=== PATIENT | male | born 1985 | race Caucasian/White ===

== ENCOUNTER 2019-09-14 12:29 | Inpatient (IN) | payer MEDICAID ==
[~2019-09-14] VITALS: Ht 185.4 cm; Wt 76.6 kg
[2019-09-14 13:43] LABS: BASOPHILS # (AUTO) 0.1 X10'3 (0-0.2); BASOPHILS % (AUTO) 0.3 % (0-1); EOSINOPHILS # (AUTO) 0.1 X10'3 (0-0.9); EOSINOPHILS % (AUTO) 0.4 % (0-6); HEMATOCRIT 39.7 % (42.0-52.0); HEMOGLOBIN 13.2 g/dl (14.0-17.9); MEAN CORPUSCULAR HEMOGLOBIN 28.5 PG (27.0-31.0); MEAN CORPUSCULAR HGB CONC 33.4 g/dL (33.0-36.5); MEAN CORPUSCULAR VOLUME 85.5 FL (78-98); MEAN PLATELET VOLUME 7.2 FL (7.4-10.4); MONOCYTES # (AUTO) 1.6 X10'3 (0-0.9); MONOCYTES % (AUTO) 10.6 % (2-12); NEUTROPHILS # (AUTO) 11.9 X10'3 (1.8-7.7); NEUTROPHILS % (AUTO) 81.7 % (42-75); PLATELET COUNT 421 X10'3 (140-440); RED BLOOD COUNT 4.64 X10'6 (4.70-6.10); RED CELL DISTRIBUTION WIDTH 12.4 % (11.5-14.5); WHITE BLOOD COUNT 14.6 X10'3 (4.5-11.0)
[2019-09-14] MEDS ORDERED: piperacillin/tazo 3.375gm/50ml 50 ML IV ONE (13:55)
[2019-09-14 13:56] LABS: ALANINE AMINOTRANSFERASE 23 U/L (12-78); ALBUMIN 2.6 G/DL (3.4-5.0); ALBUMIN/GLOBULIN RATIO 0.6 (1.1-1.5); ALKALINE PHOSPHATASE 118 IU/L (46-116); ANION GAP 3 (8-16); ASPARTATE AMINO TRANSFERASE 16 U/L (10-37); BILIRUBIN,TOTAL 0.6 MG/DL (0.1-1.0); BLOOD UREA NITROGEN 8 MG/DL (7-18); BUN/CREATININE RATIO 7.1 (5.4-32.0); CALCIUM 9.1 MG/DL (8.5-10.1); CHLORIDE 101 MMOL/L (99-107); CREATININE 1.13 MG/DL (0.60-1.10); GLUCOSE 57 MG/DL (70-104); LIPASE 92 U/L (73-393); SODIUM 137 MMOL/L (135-145); TOTAL CARBON DIOXIDE 32.9 MMOL/L (24-32); TOTAL PROTEIN 7.2 G/DL (6.4-8.2); eGFR 74 ML/MIN
[2019-09-14] MEDS ORDERED: normal saline 1000ML IV soln IVB ONE (14:00)
[2019-09-14] MEDS ORDERED: ketorolac tromethamine 15mg/ml inj. IV ONE (14:00)
[2019-09-14] MEDS ORDERED: morphine 4 MG/ML inj SYRINge IV ONE (14:30)
[2019-09-14] MEDS ORDERED: HYDROcodone/acetaminophen 5mg/325mg tablet PO PRN (15:40)
[2019-09-14] MEDS ORDERED: ondansetron/PF 4mg/2ml inj IV PRN (15:40)
[2019-09-14] MEDS ORDERED: acetaminophen 325mg tablet PO PRN ×2 (15:40)
[2019-09-14] MEDS ORDERED: mag hydrox/Alum hydrox/simeth 30ml oral suspension PO PRN (15:40)
[2019-09-14] MEDS ORDERED: potassium CL 10mEq/100ml bag 100 ML IV PRN ×2 (15:40)
[2019-09-14] MEDS ORDERED: potassium Cl 20 mEq SR tablet PO PRN ×2 (15:40)
[2019-09-14] MEDS: normal saline 1000ml 1,000 ML IV SCH ×2 (15:56→20:32)
[2019-09-14] MEDS ORDERED: piperacillin/tazo 3.375gm/50ml 50 ML IV SCH (16:00)
[2019-09-14] MEDS ORDERED: NO HOME MEDS (16:03)
--- NOTE | 2019-09-14 17:50 | NUR ---
Paged Dr. Sharpe: PAGER ID: [phone] MESSAGE: Surgical Flsherwin Harrington RN ext [phone]. RE: Fabien Martin. Patient has multiple lesions scattered on his chest and arms. We are not sure if it is scabies or not. I took picture. Will u be able to come and look at it?
--- NOTE | 2019-09-14 17:50 | NUR ---
Patient just got in the room from ER. Patient alert, oriented x 4. Patient oriented to his room. Patient noted to have multiple lesions scattered on his chest and arms. Took picture of the lesions with patient permission. Patient denies insect bite, patient states "I got it when I sweat!" Charge nurse Roxanne small, she advised me to have Dr. Sharpe looked at it.
--- NOTE | 2019-09-14 17:57 | NUR ---
Dr. Sharpe came to look at the picture taken and to assess the patient skin. Per Dr. Sharpe, the skin lesion does not seem to be scabies.
[2019-09-14 17:58] VITALS: BP 116/63
--- NOTE | 2019-09-14 18:34 | NUR ---
Problems reprioritized. Patient report given, questions answered & plan of care reviewed with Linda PAK.
--- NOTE | 2019-09-14 19:49 | NUR ---
Patient in room [facility]. I have received report from MELLISA Harrington and had the opportunity to ask questions and assume patient care. Addendum: 09/14/19 at 1949 by Linda Peralta RN Amended: Links added.
[2019-09-14 19:57] VITALS: BP 133/64
[2019-09-14] MEDS: K and/or MAG REPLACEMENT MC SCH (20:00)
[2019-09-14] MEDS: docusate sod 100mg capsule PO SCH (20:30)
[2019-09-14] MEDS: heparin, porcine 5000 units/ml vial SQ SCH (20:30)
[2019-09-14] MEDS ORDERED: temazepam 15mg capsule PO PRN (21:00)
[2019-09-14] MEDS: HYDROcodone/acetaminophen 10/325mg tab PO PRN (22:51)
[2019-09-14 23:41] VITALS: BP 118/60
[2019-09-15] MEDS: piperacillin/tazo 3.375gm/50ml 50 ML IV SCH ×3 (00:05→15:49)
[2019-09-15] MEDS: normal saline 1000ml 1,000 ML IV SCH ×3 (03:06→21:12)
[2019-09-15 05:11] LABS: BASOPHILS % (AUTO) 0.4 % (0-1); EOSINOPHILS # (AUTO) 0.1 X10'3 (0-0.9); EOSINOPHILS % (AUTO) 0.7 % (0-6); HEMATOCRIT 37.4 % (42.0-52.0); HEMOGLOBIN 12.3 g/dl (14.0-17.9); LYMPHOCYTES # (AUTO) 1.4 X10'3 (1.1-4.8); LYMPHOCYTES % (AUTO) 12.3 % (21-51); MEAN CORPUSCULAR HEMOGLOBIN 28.3 PG (27.0-31.0); MEAN CORPUSCULAR HGB CONC 32.8 g/dL (33.0-36.5); MEAN CORPUSCULAR VOLUME 86.2 FL (78-98); MEAN PLATELET VOLUME 7.7 FL (7.4-10.4); MONOCYTES # (AUTO) 1.3 X10'3 (0-0.9); MONOCYTES % (AUTO) 11.5 % (2-12); NEUTROPHILS # (AUTO) 8.8 X10'3 (1.8-7.7); NEUTROPHILS % (AUTO) 75.1 % (42-75); PLATELET COUNT 388 X10'3 (140-440); RED BLOOD COUNT 4.33 X10'6 (4.70-6.10); RED CELL DISTRIBUTION WIDTH 12.7 % (11.5-14.5); WHITE BLOOD COUNT 11.7 X10'3 (4.5-11.0)
[2019-09-15 05:21] LABS: ALANINE AMINOTRANSFERASE 16 U/L (12-78); ALBUMIN 2.1 G/DL (3.4-5.0); ALBUMIN/GLOBULIN RATIO 0.5 (1.1-1.5); ALKALINE PHOSPHATASE 103 IU/L (46-116); ANION GAP 9 (8-16); ASPARTATE AMINO TRANSFERASE 15 U/L (10-37); BILIRUBIN,TOTAL 0.8 MG/DL (0.1-1.0); BLOOD UREA NITROGEN 8 MG/DL (7-18); BUN/CREATININE RATIO 8.1 (5.4-32.0); CHLORIDE 102 MMOL/L (99-107); CREATININE 0.99 MG/DL (0.60-1.10); GLUCOSE 70 MG/DL (70-104); POTASSIUM 3.9 MMOL/L (3.5-5.1); SODIUM 137 MMOL/L (135-145); TOTAL CARBON DIOXIDE 26.5 MMOL/L (24-32); TOTAL PROTEIN 6.2 G/DL (6.4-8.2); eGFR 87 ML/MIN
--- NOTE | 2019-09-15 06:17 | NUR ---
Problems reprioritized. Patient report given, questions answered & plan of care reviewed with MELLISA Rosa. Addendum: 09/15/19 at 0617 by Linda Peralta RN Amended: Links added.
[2019-09-15] MEDS: pantoprazole 40mg Tablet.DR PO SCH (07:21)
[2019-09-15] MEDS: heparin, porcine 5000 units/ml vial SQ SCH ×2 (07:22→19:49)
[2019-09-15] MEDS: docusate sod 100mg capsule PO SCH ×2 (07:22→19:49)
[2019-09-15] MEDS: K and/or MAG REPLACEMENT MC SCH ×2 (07:23→19:50)
[2019-09-15] MEDS: nicotine 14mg patch - 24hr TD SCH (07:23)
[2019-09-15 07:30] VITALS: BP 126/64
[2019-09-15] MEDS: HYDROcodone/acetaminophen 10/325mg tab PO PRN ×3 (07:30→18:08)
[2019-09-15] MEDS: neomy sulf/bacitrac zn/polymixin b oint 14.2 gm tube TP SCH ×2 (10:30→19:50)
[2019-09-15 11:00] VITALS: BP 120/62
--- NOTE | 2019-09-15 12:53 | NUR ---
SPOKE TO THE PT'S MOTHER SHANDRA. SHE STATES SHE WOULD LIKE TELEPHONE UPDATES CONCERNING PT. POC NEEDED.
--- NOTE | 2019-09-15 13:22 | NUR ---
PAGER ID: [phone] MESSAGE: DID YOU WANT ME TO ORDER A CT SCAN FOR Ciscob Fabien GASTON? PT. IMPATIENT AT THIS TIME. IV CONTRAST? ZAINAB [id number]
--- NOTE | 2019-09-15 15:11 | NUR ---
CALLED MOTHER SHANDRA TO UPDATE ON POC- NO ANSWER. LEFT VOICEMAIL WITH CONTACT NUMBER.
--- NOTE | 2019-09-15 15:15 | NUR ---
24 HOUR TELE ORDER . REMOVED PER PROTOCOL.
--- NOTE | 2019-09-15 18:17 | NUR ---
REPORT GIVEN TO LEATHA PAK.
[2019-09-15 18:30] VITALS: BP 108/69
[2019-09-15] MEDS: lactobacillus rhamnosus 10,000 MMU CELLS/CAPSULE PO SCH (19:49)
[2019-09-15 19:58] VITALS: BP 114/70
[2019-09-15] MEDS: diatr meglu/diatrizoate 30ml oral sol.-(3 dose) bottle PO SCH (21:18)
[2019-09-16] VITALS: BP 115/70
[2019-09-16] MEDS: piperacillin/tazo 3.375gm/50ml 50 ML IV SCH ×3 (00:16→16:35)
[2019-09-16] MEDS: HYDROcodone/acetaminophen 10/325mg tab PO PRN (03:13)
[2019-09-16 05:45] LABS: BASOPHILS # (AUTO) 0.1 X10'3 (0-0.2); BASOPHILS % (AUTO) 0.8 % (0-1); EOSINOPHILS # (AUTO) 0.2 X10'3 (0-0.9); EOSINOPHILS % (AUTO) 1.9 % (0-6); HEMATOCRIT 35.5 % (42.0-52.0); HEMOGLOBIN 11.9 g/dl (14.0-17.9); LYMPHOCYTES # (AUTO) 1.1 X10'3 (1.1-4.8); LYMPHOCYTES % (AUTO) 11.6 % (21-51); MEAN CORPUSCULAR HEMOGLOBIN 28.8 PG (27.0-31.0); MEAN CORPUSCULAR HGB CONC 33.5 g/dL (33.0-36.5); MEAN CORPUSCULAR VOLUME 85.9 FL (78-98); MEAN PLATELET VOLUME 7.6 FL (7.4-10.4); MONOCYTES % (AUTO) 10.8 % (2-12); NEUTROPHILS # (AUTO) 6.9 X10'3 (1.8-7.7); NEUTROPHILS % (AUTO) 74.9 % (42-75); PLATELET COUNT 401 X10'3 (140-440); RED BLOOD COUNT 4.14 X10'6 (4.70-6.10); RED CELL DISTRIBUTION WIDTH 12.4 % (11.5-14.5); WHITE BLOOD COUNT 9.2 X10'3 (4.5-11.0)
[2019-09-16 05:52] LABS: ALANINE AMINOTRANSFERASE 15 U/L (12-78); ALBUMIN 2.1 G/DL (3.4-5.0); ALBUMIN/GLOBULIN RATIO 0.5 (1.1-1.5); ALKALINE PHOSPHATASE 151 IU/L (46-116); ANION GAP 9 (8-16); ASPARTATE AMINO TRANSFERASE 17 U/L (10-37); BILIRUBIN,TOTAL 0.5 MG/DL (0.1-1.0); BLOOD UREA NITROGEN 4 MG/DL (7-18); BUN/CREATININE RATIO 4.6 (5.4-32.0); CALCIUM 8.6 MG/DL (8.5-10.1); CHLORIDE 102 MMOL/L (99-107); CREATININE 0.87 MG/DL (0.60-1.10); GLUCOSE 85 MG/DL (70-104); POTASSIUM 3.7 MMOL/L (3.5-5.1); SODIUM 138 MMOL/L (135-145); TOTAL CARBON DIOXIDE 27.5 MMOL/L (24-32); TOTAL PROTEIN 6.4 G/DL (6.4-8.2); eGFR > 90 ML/MIN
--- NOTE | 2019-09-16 06:25 | NUR ---
Problems reprioritized. Patient report given, questions answered & plan of care reviewed with BERNIE. Addendum: 09/16/19 at 0626 by Bairon Curry RN Amended: Links added.
--- NOTE | 2019-09-16 06:43 | NUR ---
Patient in room [facility]. I have received report from MELLISA Child and had the opportunity to ask questions and assume patient care.
[2019-09-16] MEDS: diatr meglu/diatrizoate 30ml oral sol.-(3 dose) bottle PO SCH ×2 (07:18→11:13)
[2019-09-16] MEDS: pantoprazole 40mg Tablet.DR PO SCH (07:21)
[2019-09-16] MEDS: docusate sod 100mg capsule PO SCH ×2 (07:21→19:06)
[2019-09-16] MEDS: lactobacillus rhamnosus 10,000 MMU CELLS/CAPSULE PO SCH ×2 (07:21→19:06)
[2019-09-16] MEDS: nicotine 14mg patch - 24hr TD SCH (07:24)
[2019-09-16] MEDS: normal saline 1000ml 1,000 ML IV SCH ×2 (07:26→16:36)
[2019-09-16] MEDS: heparin, porcine 5000 units/ml vial SQ SCH ×2 (08:00→20:00)
[2019-09-16] MEDS: neomy sulf/bacitrac zn/polymixin b oint 14.2 gm tube TP SCH ×2 (08:00→20:00)
[2019-09-16] MEDS: K and/or MAG REPLACEMENT MC SCH ×2 (08:00→18:57)
[2019-09-16 08:53] VITALS: BP 113/75
[2019-09-16] MEDS ORDERED: iohexol 300mg/ml 100ml inj. ONE (10:56)
[2019-09-16] MEDS: morphine 2 MG/ML inj. syringe IV PRN ×2 (11:44→18:40)
[2019-09-16 12:00] VITALS: BP_SYST 113; BP_SYST 126; BP_DIAS 64; BP_DIAS 75
[2019-09-16] MEDS: mesalamine 1.2gm ER tablet PO SCH (17:58)
--- NOTE | 2019-09-16 18:54 | NUR ---
Problems reprioritized. Patient report given, questions answered & plan of care reviewed with MELLISA Lucas. Pt agiteded talking to Family member. medicated for pain PRN x2.
[2019-09-16] MEDS: LORazepam 1 MG tablet PO PRN (19:06)
--- NOTE | 2019-09-16 19:20 | NUR ---
Patient agitated; screaming and yelling. Ativan given.
[2019-09-16 20:00] VITALS: BP 112/66
--- NOTE | 2019-09-16 20:27 | NUR ---
Patient refused neosprin ointment to be applied to his skin tonight. Also refused heparin injection tonight.
[2019-09-17] VITALS: BP 128/77
[2019-09-17] MEDS ORDERED: MESALAMINE 250 MG PO SCH
[2019-09-17] MEDS: normal saline 1000ml 1,000 ML IV SCH ×4 (00:27→19:50)
[2019-09-17] MEDS: piperacillin/tazo 3.375gm/50ml 50 ML IV SCH ×2 (00:28→07:43)
[2019-09-17] MEDS: LORazepam 1 MG tablet PO PRN (00:28)
[2019-09-17 05:47] LABS: BASOPHILS % (AUTO) 0.6 % (0-1); EOSINOPHILS # (AUTO) 0.2 X10'3 (0-0.9); EOSINOPHILS % (AUTO) 2.8 % (0-6); HEMATOCRIT 37.9 % (42.0-52.0); HEMOGLOBIN 12.7 g/dl (14.0-17.9); LYMPHOCYTES # (AUTO) 1.1 X10'3 (1.1-4.8); LYMPHOCYTES % (AUTO) 14.1 % (21-51); MEAN CORPUSCULAR HEMOGLOBIN 28.5 PG (27.0-31.0); MEAN CORPUSCULAR HGB CONC 33.6 g/dL (33.0-36.5); MEAN CORPUSCULAR VOLUME 84.9 FL (78-98); MEAN PLATELET VOLUME 7.1 FL (7.4-10.4); MONOCYTES # (AUTO) 0.9 X10'3 (0-0.9); MONOCYTES % (AUTO) 11.5 % (2-12); NEUTROPHILS # (AUTO) 5.3 X10'3 (1.8-7.7); PLATELET COUNT 439 X10'3 (140-440); RED BLOOD COUNT 4.46 X10'6 (4.70-6.10); RED CELL DISTRIBUTION WIDTH 12.6 % (11.5-14.5); WHITE BLOOD COUNT 7.5 X10'3 (4.5-11.0)
[2019-09-17 05:55] LABS: ALANINE AMINOTRANSFERASE 17 U/L (12-78); ALBUMIN 2.2 G/DL (3.4-5.0); ALBUMIN/GLOBULIN RATIO 0.5 (1.1-1.5); ALKALINE PHOSPHATASE 179 IU/L (46-116); ANION GAP 10 (8-16); ASPARTATE AMINO TRANSFERASE 14 U/L (10-37); BILIRUBIN,TOTAL 0.4 MG/DL (0.1-1.0); BLOOD UREA NITROGEN 4 MG/DL (7-18); CALCIUM 8.7 MG/DL (8.5-10.1); CHLORIDE 102 MMOL/L (99-107); CREATININE 1.01 MG/DL (0.60-1.10); GLUCOSE 87 MG/DL (70-104); POTASSIUM 3.8 MMOL/L (3.5-5.1); SODIUM 139 MMOL/L (135-145); TOTAL CARBON DIOXIDE 27.2 MMOL/L (24-32); TOTAL PROTEIN 6.9 G/DL (6.4-8.2); eGFR 85 ML/MIN
--- NOTE | 2019-09-17 06:21 | NUR ---
Patient in room [facility]. I have received report from Shayy PAK and had the opportunity to ask questions and assume patient care.
--- NOTE | 2019-09-17 06:24 | NUR ---
Problems reprioritized. Patient report given, questions answered & plan of care reviewed with Ella PAK.
--- NOTE | 2019-09-17 06:58 | NUR ---
Patient in room [facility]. I have received report from Hvac/R Instructor RN and had the opportunity to ask questions and assume patient care.
[2019-09-17 08:00] VITALS: BP 111/58
[2019-09-17] MEDS: neomy sulf/bacitrac zn/polymixin b oint 14.2 gm tube TP SCH ×2 (08:00→20:00)
[2019-09-17] MEDS: K and/or MAG REPLACEMENT MC SCH ×2 (08:00→19:45)
[2019-09-17] MEDS: nicotine 14mg patch - 24hr TD SCH (08:00)
[2019-09-17] MEDS: heparin, porcine 5000 units/ml vial SQ SCH ×2 (08:00→19:57)
[2019-09-17] MEDS: lactobacillus rhamnosus 10,000 MMU CELLS/CAPSULE PO SCH ×2 (09:22→19:57)
[2019-09-17] MEDS: docusate sod 100mg capsule PO SCH ×2 (09:22→19:57)
[2019-09-17] MEDS: pantoprazole 40mg Tablet.DR PO SCH (09:22)
[2019-09-17] MEDS: mesalamine 1.2gm ER tablet PO SCH (09:24)
[2019-09-17] MEDS: morphine 2 MG/ML inj. syringe IV PRN ×2 (09:26→16:41)
[2019-09-17 11:00] VITALS: BP 110/69
[2019-09-17 12:49] LABS: HIV ANTIBODY 1&2 RAPID NON-REACTIVE (Neg)
--- NOTE | 2019-09-17 13:42 | NUR ---
Patient's step mom Laurita called asking when patient going home and also claiming that patient is being "overly sedated!" and that patient did not know what's going on with him. I explained to her that patient has been receiving Morphine for pain control and that we have to make sure patient is comfortable. I asked patient if the doctor had discussed with him the result of CT scan result, he said yes. When I asked him what the doctor said, he stated that doctor told him he has Crohn's. Per patient, he does not have history of Crohns. Also patient stated that the doctor had told him about the need for colonoscopy. Patient also stated agreement with Morphine IV being given to him for his pain.
[2019-09-17] MEDS: metroNIDAZOLE-Flagyl 500mg/NS 100 ML IV SCH (16:35)
--- NOTE | 2019-09-17 17:38 | NUR ---
Problems reprioritized. Patient report given, questions answered & plan of care reviewed with Juany PAK.
[2019-09-17] MEDS: HYDROcodone/acetaminophen 10/325mg tab PO PRN (17:50)
--- NOTE | 2019-09-17 17:51 | NUR ---
Golytely started. Explained to patient that it will make him have BM and that he will have to drink Golytely until its finish or until he's BM is clear
[2019-09-17] MEDS ORDERED: PEG 3350/Na sulf,bicarb,Cl/KCl oral sol 4 liter bottle PO ONE (18:00)
--- NOTE | 2019-09-17 18:30 | NUR ---
Problems reprioritized. Patient report given, questions answered & plan of care reviewed with Sharmila Leger RN.
--- NOTE | 2019-09-17 18:46 | NUR ---
Patient in room [facility]. I have received report from MELLISA Palmer and had the opportunity to ask questions and assume patient care. Addendum: 09/17/19 at 1846 by Brianne Mari RN Amended: Links added.
[2019-09-17] MEDS: ciprofloxacin lact 400MG/200ML 200 ML IV SCH (19:50)
[2019-09-17 20:00] VITALS: BP 145/64
[2019-09-18] VITALS (9 sets, daily range): BP systolic 101–138; BP diastolic 60–77
[2019-09-18] MEDS: metroNIDAZOLE-Flagyl 500mg/NS 100 ML IV SCH ×2 (00:30→07:53)
[2019-09-18] MEDS: HYDROcodone/acetaminophen 10/325mg tab PO PRN (01:32)
--- NOTE | 2019-09-18 06:09 | NUR ---
Problems reprioritized. Patient report given, questions answered & plan of care reviewed with MLELISA Jaramillo. Addendum: 09/18/19 at 0609 by Brianne Mari RN Amended: Links added.
[2019-09-18 06:15] LABS: BASOPHILS % (AUTO) 0.6 % (0-1); EOSINOPHILS # (AUTO) 0.3 X10'3 (0-0.9); EOSINOPHILS % (AUTO) 3.3 % (0-6); HEMATOCRIT 36.8 % (42.0-52.0); HEMOGLOBIN 12.2 g/dl (14.0-17.9); LYMPHOCYTES # (AUTO) 1.3 X10'3 (1.1-4.8); LYMPHOCYTES % (AUTO) 17.1 % (21-51); MEAN CORPUSCULAR HEMOGLOBIN 28.2 PG (27.0-31.0); MEAN CORPUSCULAR VOLUME 85.2 FL (78-98); MEAN PLATELET VOLUME 7.2 FL (7.4-10.4); MONOCYTES # (AUTO) 0.9 X10'3 (0-0.9); MONOCYTES % (AUTO) 11.4 % (2-12); NEUTROPHILS # (AUTO) 5.2 X10'3 (1.8-7.7); NEUTROPHILS % (AUTO) 67.6 % (42-75); PLATELET COUNT 496 X10'3 (140-440); RED BLOOD COUNT 4.32 X10'6 (4.70-6.10); RED CELL DISTRIBUTION WIDTH 12.5 % (11.5-14.5); WHITE BLOOD COUNT 7.8 X10'3 (4.5-11.0)
--- NOTE | 2019-09-18 06:36 | NUR ---
Patient in room [facility]. I have received report from Sharmila Leger RN and had the opportunity to ask questions and assume patient care.
[2019-09-18 06:40] LABS: ALANINE AMINOTRANSFERASE 22 U/L (12-78); ALBUMIN 2.2 G/DL (3.4-5.0); ALBUMIN/GLOBULIN RATIO 0.5 (1.1-1.5); ALKALINE PHOSPHATASE 142 IU/L (46-116); ANION GAP 9 (8-16); ASPARTATE AMINO TRANSFERASE 27 U/L (10-37); BILIRUBIN,TOTAL 0.2 MG/DL (0.1-1.0); BLOOD UREA NITROGEN 3 MG/DL (7-18); BUN/CREATININE RATIO 3.2 (5.4-32.0); CALCIUM 8.8 MG/DL (8.5-10.1); CHLORIDE 104 MMOL/L (99-107); CREATININE 0.94 MG/DL (0.60-1.10); GLUCOSE 86 MG/DL (70-104); POTASSIUM 3.8 MMOL/L (3.5-5.1); SODIUM 140 MMOL/L (135-145); TOTAL CARBON DIOXIDE 26.8 MMOL/L (24-32); TOTAL PROTEIN 6.7 G/DL (6.4-8.2); eGFR > 90 ML/MIN
[2019-09-18] MEDS: heparin, porcine 5000 units/ml vial SQ SCH ×2 (06:46→19:22)
[2019-09-18] MEDS: pantoprazole 40mg Tablet.DR PO SCH (07:51)
[2019-09-18] MEDS: docusate sod 100mg capsule PO SCH ×2 (07:51→19:27)
[2019-09-18] MEDS: lactobacillus rhamnosus 10,000 MMU CELLS/CAPSULE PO SCH ×2 (07:51→19:22)
[2019-09-18] MEDS: mesalamine 1.2gm ER tablet PO SCH (07:52)
[2019-09-18] MEDS: K and/or MAG REPLACEMENT MC SCH ×2 (08:00→19:23)
[2019-09-18] MEDS: nicotine 14mg patch - 24hr TD SCH (08:00)
[2019-09-18] MEDS: neomy sulf/bacitrac zn/polymixin b oint 14.2 gm tube TP SCH ×2 (08:00→19:28)
[2019-09-18] MEDS: morphine 2 MG/ML inj. syringe IV PRN (09:05)
[2019-09-18] MEDS: normal saline 1000ml 1,000 ML IV SCH (09:11)
[2019-09-18] MEDS: ciprofloxacin lact 400MG/200ML 200 ML IV SCH ×2 (09:11→19:22)
--- NOTE | 2019-09-18 09:40 | NUR ---
Patient getting frustrated about the colonoscopy might not get done sooner. Patient had been drinking Golytely and so far the stool has been clearing. Charge nurse Sima talked to the patient to reassure that it will get done and that he needs to continue drinking Golytely. Notified GI lab via page
--- NOTE | 2019-09-18 13:01 | NUR ---
Patient just left the room on the way to GI lab for colonoscopy
[2019-09-18 13:12] LABS: HBSAG SCREEN Negative (Negative); HEP A AB, IGM Negative (Negative); HEP B CORE AB, IGM Negative (Negative); HEPATITIS C ANTIBODY <0.1 s/co ratio (0.0-0.9)
[2019-09-18] MEDS ORDERED: fentaNYL/PF 50MCG/1 ML 2ML syringe ONE (13:40)
[2019-09-18] MEDS ORDERED: MIDAZolam 5mg/5ml vial ONE (13:40)
--- NOTE | 2019-09-18 14:04 | NUR ---
Patient's step mom called asking if patient already went for colonoscopy. I told her patient currently in the GI lab for colonoscopy and expected to come back to his room after the procedure.Patient's step mom asking when patient will be discharge, I also hearing in the background a man who may be the patient's father. I told the step mom that I do not know at this time when patient will be discharge. She requesting to speak to the doctor. She also expressed concern about the patient needing to be in his "appointment". I asked her about when this appointment will be and she said "in a few days". Paged Dr. Husain to let him know patient currently having colonoscopy and that the step mom wish to speak to him.
--- NOTE | 2019-09-18 17:06 | NUR ---
Patient just got back to his room from GI lab. Patient sleepy but will wake up when talking to him. Addendum: 09/18/19 at 1750 by Juany Erazo RN Report received from Christie PAK from GI lab, per Christie Husain has been notified about the colonoscopy findings
[2019-09-18] MEDS: metroNIDAZOLE 500mg tablet PO SCH (17:08)
--- NOTE | 2019-09-18 18:27 | NUR ---
Patient in room [facility]. I have received report from Juany PAK and had the opportunity to ask questions and assume patient care.
--- NOTE | 2019-09-18 18:28 | NUR ---
Patient in room [facility] 349A. I have received report from Juany PAK and had the opportunity to ask questions and assume patient care.
--- NOTE | 2019-09-18 18:28 | NUR ---
Problems reprioritized. Patient report given, questions answered & plan of care reviewed with Marilee PAK.
[2019-09-18] MEDS: LORazepam 1 MG tablet PO PRN (19:01)
--- NOTE | 2019-09-18 22:00 | NUR ---
At 1900. Patient is severely agitated yelling and cursing on the phone. Patient is upset and crying, stated that he wants to leave [facility] because his kids needs him right now. Explained to patient plan of treatment and the need to stay in the hospital to get proper care. Patient agreed to not leave AMA. However, patient continued to be agitated and restless. Offered Ativan to patient to assist with agitation. Ativan given and was effective.
[2019-09-19] VITALS: BP 113/72
[2019-09-19] MEDS: normal saline 1000ml 1,000 ML IV SCH ×2 (00:05→09:26)
[2019-09-19] MEDS: metroNIDAZOLE 500mg tablet PO SCH ×2 (00:12→07:53)
[2019-09-19] MEDS: HYDROcodone/acetaminophen 10/325mg tab PO PRN (06:14)
--- NOTE | 2019-09-19 06:15 | NUR ---
Patient in room [facility]. I have received report from MELLISA Hunt and had the opportunity to ask questions and assume patient care.
[2019-09-19 06:28] LABS: BASOPHILS # (AUTO) 0.1 X10'3 (0-0.2); BASOPHILS % (AUTO) 0.6 % (0-1); EOSINOPHILS # (AUTO) 0.2 X10'3 (0-0.9); EOSINOPHILS % (AUTO) 2.4 % (0-6); HEMATOCRIT 38.8 % (42.0-52.0); HEMOGLOBIN 12.9 g/dl (14.0-17.9); LYMPHOCYTES # (AUTO) 1.3 X10'3 (1.1-4.8); LYMPHOCYTES % (AUTO) 14.1 % (21-51); MEAN CORPUSCULAR HEMOGLOBIN 28.6 PG (27.0-31.0); MEAN CORPUSCULAR HGB CONC 33.4 g/dL (33.0-36.5); MEAN CORPUSCULAR VOLUME 85.6 FL (78-98); MEAN PLATELET VOLUME 7.1 FL (7.4-10.4); MONOCYTES # (AUTO) 1.1 X10'3 (0-0.9); MONOCYTES % (AUTO) 12.3 % (2-12); NEUTROPHILS # (AUTO) 6.3 X10'3 (1.8-7.7); NEUTROPHILS % (AUTO) 70.6 % (42-75); PLATELET COUNT 500 X10'3 (140-440); RED BLOOD COUNT 4.53 X10'6 (4.70-6.10); RED CELL DISTRIBUTION WIDTH 12.9 % (11.5-14.5)
[2019-09-19 06:30] VITALS: BP 109/63
[2019-09-19 06:43] LABS: ALANINE AMINOTRANSFERASE 21 U/L (12-78); ALBUMIN 2.3 G/DL (3.4-5.0); ALBUMIN/GLOBULIN RATIO 0.5 (1.1-1.5); ALKALINE PHOSPHATASE 120 IU/L (46-116); ANION GAP 7 (8-16); ASPARTATE AMINO TRANSFERASE 22 U/L (10-37); BILIRUBIN,TOTAL 0.2 MG/DL (0.1-1.0); BLOOD UREA NITROGEN 4 MG/DL (7-18); BUN/CREATININE RATIO 4.4 (5.4-32.0); CHLORIDE 104 MMOL/L (99-107); GLUCOSE 92 MG/DL (70-104); SODIUM 138 MMOL/L (135-145); TOTAL CARBON DIOXIDE 27.4 MMOL/L (24-32); TOTAL PROTEIN 6.8 G/DL (6.4-8.2); eGFR > 90 ML/MIN
--- NOTE | 2019-09-19 06:51 | NUR ---
Problems reprioritized. Patient report given, questions answered & plan of care reviewed with Sayra RN.
[2019-09-19] MEDS: K and/or MAG REPLACEMENT MC SCH (07:18)
[2019-09-19] MEDS: heparin, porcine 5000 units/ml vial SQ SCH (07:49)
[2019-09-19] MEDS: mesalamine 1.2gm ER tablet PO SCH (07:53)
[2019-09-19] MEDS: lactobacillus rhamnosus 10,000 MMU CELLS/CAPSULE PO SCH (07:53)
[2019-09-19] MEDS: pantoprazole 40mg Tablet.DR PO SCH (07:53)
[2019-09-19] MEDS: docusate sod 100mg capsule PO SCH (07:53)
[2019-09-19] MEDS: ciprofloxacin lact 400MG/200ML 200 ML IV SCH (07:55)
[2019-09-19 11:00] VITALS: BP 109/64
[2019-09-19] MEDS ORDERED: CIPR-173 PO (13:06)
[2019-09-19] MEDS ORDERED: PRED10TA PO (13:06)
[2019-09-19] MEDS ORDERED: METR500T PO (13:06)
--- NOTE | 2019-09-19 14:05 | NUR ---
DC inst provided to pt. IV DC'd, tip intact. All belongings sent w/pt. Pt ambulated to front lobby.
--- NOTE | 2019-09-19 14:18 | NUR ---
Pt was on clear liquid diet and has recently been advanced by MD to regular diet for lunch. New Crohn's disease, s/p colonoscopy with mass found at terminal ileum severe inflammation versus malignancy, possible fistula formation, h/o meth abuse all per MD progress note. Patient seen at bedside, observed that he ate about 100% of his lunch tray, he reports he ate too fast and is hungry after a couple days of clear liquids. Good appetite. Pt given written nutrition recommendations for Crohn's disease and verballly reviewed, pt verbalized understanding. Given RD contact information. Recommend: 1. continue regular diet. recommend low residue if with loose stools 2. bowel care as needed 3. weight per rx Addendum: 09/19/19 at [address] Amended: Links added.
== END 2019-09-19 14:05 | disposition home or self-care (01) | DRG 245 ==
LOC: ER 12:30 → ED HOLD 15:40 → SUR 3N 17:27
PROVIDERS: ADMIT Internal Medicine; ATTEND Family Medicine
PROC: 0DBE8ZX Excision of Large Intestine, Via Natural or Artificial Opening Endoscopic, Diagnostic (ICD-10-PCS; principal; 2019-09-18)
DX: K50.90 Crohn's disease, unspecified, without complications (principal); D64.9 Anemia, unspecified; F15.10 Other stimulant abuse, uncomplicated; R19.00 Intra-abdominal and pelvic swelling, mass and lump, unspecified site; F17.200 Nicotine dependence, unspecified, uncomplicated; F12.90 Cannabis use, unspecified, uncomplicated; K52.9 Noninfective gastroenteritis and colitis, unspecified
CPT/HCPCS: 36415; 45380; 74176; 80053; 80074; 82948; 83605; 83690; 84145; 85025; 86140; 86480; 86703; 87040; 87081; 96365; 96375; 97161; 99152; 99153; 99285; A4620; G0378; J0744; J1644; J1885; J2250; J2270; J2543; J3010; J3490; J7030; J7040; Q9963; Q9967